=== PATIENT | female | born 1975 | race Two or more races ===

== ENCOUNTER 2024-06-17 12:19 | Emergency (ER) | payer BC, OTHER ==
[~2024-06-17] VITALS: Ht 154.9 cm; Wt 56.6 kg
[2024-06-17 13:25] VITALS: BP 144/60; PULSE 89; RESP 18; TEMP 97.5; O2SAT 98
[2024-06-17] MEDS ORDERED: CEPH500C PO (14:24)
[2024-06-17] MEDS ORDERED: IBUP1TAB5 PO (14:24)
== END 2024-06-17 14:31 | disposition home or self-care (01) ==
LOC: ER 12:32
DX: S61.210A Laceration without foreign body of right index finger without damage to nail, initial encounter (principal); X58.XXXA Exposure to other specified factors, initial encounter; Z79.899 Other long term (current) drug therapy; Y93.89 Activity, other specified; Y92.89 Other specified places as the place of occurrence of the external cause; Y99.8 Other external cause status
CPT/HCPCS: 12001